=== PATIENT | female | born 2000 | race Caucasian/White ===

== ENCOUNTER 2019-07-06 08:20 | Emergency (ER) | payer OTHER, SELFPAY ==
[2019-07-06 08:27] VITALS: BP 126/64; PULSE 100; RESP 14; TEMP 38.6; O2SAT 98
--- NOTE | 2019-07-06 08:45 | ED.URI ---
HPI - URI/Sore Throat General Chief Complaint: Upper Respiratory Infection Stated Complaint: Upper Respiratory Time Seen by Provider: 07/06/19 08:35 Source: patient Mode of arrival: ambulatory Limitations: no limitations History of Present Illness HPI Narrative: Leeann King is a 19 yo female with a PMH of depression who comes to [facility] with fever and sore throat x3 days, she states is been worsening Related Data Home Medications Medication Instructions Recorded Confirmed ferrous sulfate 325 mg PO DAILY 07/06/19 07/06/19 sertraline 25 mg PO DAILY 07/06/19 07/06/19 Allergies Allergy/AdvReac Type Severity Reaction Status Date / Time Sulfa (Sulfonamide Allergy Rash Verified 07/06/19 08:35 Antibiotics) Review of Systems Review of Systems: Narrative: CONSTITUTIONAL: Denies fever, chills, sweats. EYES: Denies visual changes, redness, discharge. ENT: Denies rhinorrhea, has congestion, has sore throat, no otalgia. CARDIOVASCULAR: Denies chest pain, palpitations, edema. RESPIRATORY: Denies dyspnea, wheezing, mild cough GASTROINTESTINAL: Denies abdominal pain, nausea, vomiting, diarrhea. GENITOURINARY: Denies dysuria, hematuria, abnormal discharge SKIN: Denies rash or itching. MUSCULOSKELETAL: Denies acute back pain, joint pain, or myalgia. NEUROLOGIC: Denies numbness, or focal weakness. PSYCHIATRIC: Denies anxiety or depression. [facility] Family History Family History (Updated 07/06/19 @ 08:48 by Lillie Maldonado CNP) Other Hypertension Social History Social History Smoking status: Never smoker Comments At time of signature, I agree with nursing past medical, surgical, social and family history. There is no relevant family history pertinent to the presenting complaint. Exam Narrative: Exam Narrative: GENERAL: This is a well-nourished, well-developed patient, in mild distress. HEAD: normocephalic, atraumatic. EYES: PERRL. Sclera clear/white. Vision is grossly intact. EARS: External ears normal, auditory canals clear and without drainage, TMs normal without perforation. Hearing grossly intact. NOSE: External nose normal with no obvious nasal discharge, nares without redness, no rhinorrhea. THROAT: Mucous membranes moist, posterior pharynx erythema with exudate. Submandibular lymph node tenderness NECK: Neck supple, CARDIOVASCULAR: Tachycardic rate and rhythm without murmurs, gallops, or rubs. RESPIRATORY: Clear to auscultation. Breath sounds equal bilaterally. No wheezes, rales, or rhonchi. GASTROINTESTINAL: Abdomen soft, non-tender, SKIN: warm, intact with no suspicious lesions or rash, good texture and turgor. NEURO: awake, alert, and oriented to person, place and time. There were no obvious focal neurologic abnormalities. Steady gait EXTREMITIES: Normal range of motion. No edema. BACK: Nontender without deformity . Course Course Emergency Course: Strep test-positive Vital Signs Vital signs: Vital Signs Temperature 101.4 F H 07/06/19 08:27 Pulse Rate 100 07/06/19 08:27 Respiratory Rate 14 07/06/19 08:27 Blood Pressure 126/64 07/06/19 08:27 Pulse Oximetry 98 07/06/19 08:27 Temperature 101.4 F H 07/06/19 08:27 Pulse Rate 100 07/06/19 08:27 Respiratory Rate 14 07/06/19 08:27 Blood Pressure 126/64 07/06/19 08:27 Pulse Oximetry 98 07/06/19 08:27 MDM - URI/Sore Throat Differential Diagnosis Differential diagnosis: Likely upper respiratory infection, viral infection and pharyngitis Lab Data Labs: Strep Screen Positive Group A Strep *(Reference Range: Negative)* Discharge Plan Discharge Clinical Impression: Pharyngitis Qualifiers: Pharyngitis/tonsillitis etiology: streptococcus Qualified Code(s): J02.0 - Streptococcal pharyngitis Patient Disposition: Home, Self-Care Condition: Stable Instructions: Antibiotic Form, Strep Throat (DC) Prescriptions: New
== END 2019-07-06 09:03 | disposition home or self-care (01) ==
PROVIDERS: Emergency Provider Nurse Practitioner
DX: J02.0 Streptococcal pharyngitis (principal); F32.9 Major depressive disorder, single episode, unspecified
CPT/HCPCS: 87880; 99213; G0463

== ENCOUNTER 2019-12-14 10:29 | Emergency (ER) | payer OTHER, SELFPAY ==
[2019-12-14 10:37] VITALS: BP 138/88; PULSE 118; RESP 20; TEMP 37.5; O2SAT 99
--- NOTE | 2019-12-14 11:06 | ED.EAR ---
HPI - Ear Problem General Chief complaint: Ear Stated complaint: ear pain/sore throat Time Seen by Provider: 12/14/19 11:06 Source: patient and RN notes reviewed History of Present Illness HPI Narrative: Patient is a 19-year-old female who presents the urgent care with complaints of bilateral ear pressure/pain, sinus drainage and sinus pressure. Patient states that started and she has taken 1 dose of Sudafed since then. Patient denies any fever, nausea, vomiting. No other acute complaints. No acute distress noted. Patient read the plan of care. Related Data Home Medications Medication Instructions Recorded Confirmed ferrous sulfate 325 mg PO DAILY 07/06/19 12/14/19 sertraline 25 mg PO DAILY 07/06/19 12/14/19 Allergies Allergy/AdvReac Type Severity Reaction Status Date / Time Sulfa (Sulfonamide Allergy Rash Verified 07/06/19 08:35 Antibiotics) Review of Systems Review of Systems: Narrative: CONSTITUTIONAL: Denies fever, chills, or sweats. EYES: Denies visual changes, redness, or discharge. ENT: Reports of bilateral otalgia, postnasal drainage, sinus pressure and sore throat CARDIOVASCULAR: Denies chest pain, palpitations, or edema. RESPIRATORY: Denies cough or dyspnea. GASTROINTESTINAL: Denies abdominal pain, nausea, vomiting, or diarrhea. GENITOURINARY: Denies dysuria or hematuria. SKIN: Denies rash or itching. MUSCULOSKELETAL: Denies back pain, joint pain, or myalgia. NEUROLOGIC: Denies headache, numbness, or weakness. All other systems reviewed are negative, except as documented in HPI. PMFSH Family History Family History (Updated 07/06/19 @ 08:48 by Lillie Maldonado CNP) Other Hypertension Social History Social History Smoking status: Never smoker Comments At the time of my signature, I reviewed and agree with the nursing past medical, surgical, social, and family history. There is no relevant family history pertinent to the patient complaint. Exam Narrative: Exam Narrative: GENERAL: This is a well-nourished, well-developed patient, in no apparent distress. HEAD: normocephalic, atraumatic. EYES: PERRL. Sclera clear/white. Vision is grossly intact. EARS: External ears normal, auditory canals clear and without drainage, moderate erythema and mild injection noted to the left TM, right TMs normal without perforation. Hearing grossly intact. NOSE: External nose normal with no obvious nasal discharge, nares without redness, no rhinorrhea. THROAT: Mucous membranes moist, posterior pharynx clear. Mild postnasal drainage NECK: Neck supple RESPIRATORY: Clear to auscultation. Breath sounds equal bilaterally. No wheezes, rales, or rhonchi. SKIN: warm, intact with no suspicious lesions or rash, good texture and turgor. NEURO: awake, alert, and oriented to person, place and time. There were no obvious focal neurologic abnormalities. EXTREMITIES: No clubbing, cyanosis, or edema. Course Vital Signs Vital signs: Vital Signs Temperature 99.5 F 12/14/19 10:37 Pulse Rate 118 H 12/14/19 10:37 Respiratory Rate 12/14/19 10:37 Blood Pressure 138/88 12/14/19 10:37 Pulse Oximetry 99 12/14/19 10:37 Temperature 99.5 F 12/14/19 10:37 Pulse Rate 118 H 12/14/19 10:37 Respiratory Rate 12/14/19 10:37 Blood Pressure 138/88 12/14/19 10:37 Pulse Oximetry 99 12/14/19 10:37 Reviewed Medical Decision Making MDM Narrative Medical decision making narrative: Advised the patient to complete oral antibiotic regimen as prescribed. Make sure to eat and drink with medication. Do not put anything in the ear such as water, peroxide, Q-tips. May use warm compress to the outside of the ear as needed for comfort. Use Tylenol/ibuprofen as needed for pain. Use [id number] antihistamine and Flonase nasal spray for ear pressure and postnasal drainage. Follow-up with PCP within 2 to 5 days or for worsening symptoms or failure to
== END 2019-12-14 11:06 | disposition home or self-care (01) ==
PROVIDERS: Emergency Provider Nurse Practitioner Family
DX: H66.92 Otitis media, unspecified, left ear (principal)
CPT/HCPCS: 99213; G0463

== ENCOUNTER 2021-01-10 14:10 | Emergency (ER) | payer OTHER, SELFPAY ==
--- NOTE | 2021-01-10 14:13 | ED.UPPEXIN ---
HPI - Extremity Injury (Upper) General Chief Complaint: Upper Respiratory Infection Stated Complaint: Sore Throat, runny Nose, pressure in both Ears Time Seen by Provider: 01/10/21 14:14 Source: patient and RN notes reviewed Related Data Home Medications Medication Instructions Recorded Confirmed ferrous sulfate 325 mg PO DAILY 07/06/19 12/14/19 sertraline 25 mg PO DAILY 07/06/19 12/14/19 Allergies Allergy/AdvReac Type Severity Reaction Status Date / Time Sulfa (Sulfonamide Allergy Rash Verified 07/06/19 08:35 Antibiotics) PMFSH Family History Family History (Updated 07/06/19 @ 08:48 by Lillie Maldonado CNP) Other Hypertension Social History Social History Smoking status: Never smoker Discharge Plan Discharge Prescriptions: No Action ferrous sulfate 325 mg (65 mg iron) Tablet 325 mg PO DAILY RF: 0 sertraline 25 mg Tablet 25 mg PO DAILY RF: 0 amoxicillin 875 mg tablet 875 mg PO Q12H Qty: 20 RF: 0
--- NOTE | 2021-01-10 14:20 | ED.URI ---
HPI - URI/Sore Throat General Chief Complaint: Upper Respiratory Infection Stated Complaint: Sore Throat, runny Nose, pressure in both Ears Time Seen by Provider: 01/10/21 14:14 Source: patient and RN notes reviewed History of Present Illness HPI Narrative: Patient is a 20-year-old female who presents the urgent care with complaints of sore throat, runny nose, bilateral ear pressure and sinus congestion. Denies fever, chills, nausea, vomiting, cough or shortness of breath. Patient states her symptoms started yesterday and she has been taking Sudafed and Tylenol for her symptoms. Denies of any fever or known contact with strep or Covid. Patient has not been vaccinated for Covid. No other acute complaints. No acute distress noted. Patient aware of the plan of care. Some parts of this dictation were generated by voice recognition software and may contain typographical and/or grammatical inaccuracies. Related Data Home Medications Medication Instructions Recorded Confirmed ferrous sulfate 325 mg PO DAILY 07/06/19 01/10/21 sertraline 25 mg PO DAILY 07/06/19 01/10/21 Allergies Allergy/AdvReac Type Severity Reaction Status Date / Time Sulfa (Sulfonamide Allergy Rash Verified 07/06/19 08:35 Antibiotics) Review of Systems Review of Systems: CONSTITUTIONAL: Denies fever, chills, or sweats. EYES: Denies visual changes, redness, or discharge. ENT: Reports of sinus congestion, postnasal drainage, sore throat and bilateral ear pressure with runny nose CARDIOVASCULAR: Denies chest pain, palpitations, or edema. RESPIRATORY: Denies cough or dyspnea. GASTROINTESTINAL: Denies abdominal pain, nausea, vomiting, or diarrhea. GENITOURINARY: Denies dysuria or hematuria. SKIN: Denies rash or itching. MUSCULOSKELETAL: Denies back pain, joint pain, or myalgia. NEUROLOGIC: Denies headache, numbness, or weakness. All other systems reviewed are negative, except as documented in HPI. [facility] Family History Family History (Updated 07/06/19 @ 08:48 by Lillie Maldonado CNP) Other Hypertension Social History Social History Smoking status: Never smoker Gender identity (if verbalized by the patient): Female Comments At the time of my signature, I reviewed and agree with the nursing past medical, surgical, social, and family history. There is no relevant family history pertinent to the patient complaint. Exam Narrative: GENERAL: This is a well-nourished, well-developed patient, in no apparent distress. HEAD: normocephalic, atraumatic. Frontal sinus tenderness EYES: PERRL. Sclera clear/white. Vision is grossly intact. EARS: External ears normal, auditory canals clear and without drainage, moderate fluid noted behind left TM without otitis, TMs normal without perforation. Hearing grossly intact. NOSE: External nose normal with no obvious nasal discharge, nares without redness, clear rhinorrhea. THROAT: Mucous membranes moist, posterior pharynx clear. Moderate postnasal drainage NECK: Neck supple, non-tender without lymphadenopathy CARDIOVASCULAR: Regular rate and rhythm without murmurs, gallops, or rubs. RESPIRATORY: Clear to auscultation. Breath sounds equal bilaterally. No wheezes, rales, or rhonchi. SKIN: warm, intact with no suspicious lesions or rash, good texture and turgor. NEURO: awake, alert, and oriented to person, place and time. There were no obvious focal neurologic abnormalities. EXTREMITIES: No clubbing, cyanosis, or edema. Course Vital Signs Vital signs: Vital Signs Temperature 99.1 F 01/10/21 14:24 Pulse Rate 90 01/10/21 14:24 Respiratory Rate 18 01/10/21 14:24 Blood Pressure 130/71 01/10/21 14:24 Pulse Oximetry 99 01/10/21 14:24 Temperature 99.1 F 01/10/21 14:24 Pulse Rate 90 01/10/21 14:24 Respiratory Rate 18 01/10/21 14:24 Blood Pressure 130/71 01/10/21 14:24 Pulse Oximetry 99 01/10/21 14:24 Reviewed MDM - URI/Sore
[2021-01-10 14:24] VITALS: BP 130/71; PULSE 90; RESP 18; TEMP 37.3; O2SAT 99
== END 2021-01-10 14:41 | disposition home or self-care (01) ==
PROVIDERS: Emergency Provider Nurse Practitioner Family
DX: J02.9 Acute pharyngitis, unspecified (principal); J32.9 Chronic sinusitis, unspecified
CPT/HCPCS: 87081; 87880; 99213; G0463

== ENCOUNTER 2023-06-27 09:34 | Emergency (ER) | payer BC, MEDICAID, SELFPAY ==
[2023-06-27 09:43] VITALS: BP 144/77; PULSE 104; RESP 20; TEMP 36.8; O2SAT 100
--- NOTE | 2023-06-27 09:49 | ED.URI ---
HPI - URI/Sore Throat General Chief Complaint: Upper Respiratory Infection Stated Complaint: Cough Time Seen by Provider: 06/27/23 09:49 Source: patient, RN notes reviewed and old records reviewed Mode of arrival: ambulatory Limitations: no limitations History of Present Illness HPI Narrative: 23 year old female who presents to [facility] care with complaints of cough with some wheezing with sinus congestion and drainage for the past 10 days.Patient reports that she felt warm last night and had some chills and sweats but didn't have a thermometer to check temperature. Patient has been taking Claritin, Mucinex DM, and Tylenol for her symptoms. Patient reports that she has had headaches but denies any body aches MD elicited complaint: cough, rhinorrhea, nasal congestion and other (chills and sweats) Onset (ago): day(s) (10) Severity: moderate Able to tolerate fluids by mouth: Yes Treatments prior to arrival: acetaminophen and other (Claritin,Muciinex DM) Related Data Home Medications Medication Instructions Recorded Confirmed ferrous sulfate 325 mg (65 mg 325 mg PO DAILY 07/06/19 06/27/23 iron) tablet ergocalciferol (vitamin D2) 1,250 1,250 mcg PO WEEKLY 06/27/23 06/27/23 mcg (50,000 unit) capsule levothyroxine 75 mcg tablet 75 mcg PO DAILY 06/27/23 06/27/23 sertraline 25 mg tablet 25 mg PO DAILY 06/27/23 06/27/23 Allergies Allergy/AdvReac Type Severity Reaction Status Date / Time Sulfa (Sulfonamide Allergy Rash Verified 06/27/23 09:47 Antibiotics) Review of Systems Review of Systems: CONSTITUTIONAL: Denies malaise, reports episode of chills, sweats, felt fever. EYES: Denies visual changes, redness, or discharge. ENT: Reports rhinorrhea, congestion, sinus pain, no otalgia and no sore throat. CARDIOVASCULAR: Denies chest pain, palpitations, or edema. RESPIRATORY: Reports cough.? Denies dyspnea. GASTROINTESTINAL: Denies abdominal pain, nausea, vomiting, diarrhea SKIN: Denies rash or itching. MUSCULOSKELETAL: Denies myalgia. NEUROLOGIC: Reports headache. All systems reviewed & are unremarkable except as noted in HPI and below PMFSH Past Medical History Medical History (Updated 06/29/23 @ 19:27 by Tammy Elam NP) Hypothyroidism Sinusitis Surgical History Surgical History (Updated 06/27/23 @ 10:10 by Tammy Elam NP) History of tonsillectomy Family History Family History Other Hypertension Social History Social History (Updated 06/27/23 @ 10:11 by Tammy Elam NP) Smoking status: Never smoker Alcohol intake: never Substance use: never Living arrangements: with family Gender identity (if verbalized by the patient): Female Comments At time of signature, agree with nursing past medical, surgical, social and family history. There is no relevant family history pertinent to the presenting complaint Exam Narrative: GENERAL: Well-appearing, well-nourished, obese and in no acute distress. HEAD: Normocephalic EYES: PERRLA, conjunctivae clear ENT: Nares clear, turbinates edematous and erythematous, clear discharge. Mucous membranes moist. TM pearly sainz with dull light reflex bilaterally; no tragal tenderness. Oropharynx erythematous without lesions. Tonsils not present and without exudate, no drooling, no hoarseness, no trismus, uvula midline.post nasal drainage NECK: Supple. No lymphadenopathy CHEST: Clear to auscultation, breath sounds equal. No wheezing, rhonchi, rales, or stridor. No respiratory distress, speaks in full sentences.cough,SAO2 100% on room air HEART: Regular rate and rhythm. No murmur heard. SKIN: Warm, dry, no rash. NEURO: Alert and oriented x3. PSYCH: Normal mood and affect Course Course Emergency Course: Patient is aware of diagnosis, understands and agrees to treatment plan.? Anticipatory guidance given.? Patient agrees to follow-up as directed and is
== END 2023-06-27 10:08 | disposition home or self-care (01) ==
PROVIDERS: Emergency Provider Registered Nurse
DX: J32.9 Chronic sinusitis, unspecified (principal); E03.9 Hypothyroidism, unspecified; Z79.899 Other long term (current) drug therapy
CPT/HCPCS: 99213; G0463

== ENCOUNTER 2024-01-02 17:26 | Emergency (ER) | payer BC, MEDICAID, SELFPAY ==
[2024-01-02 17:35] VITALS: BP 155/89; PULSE 109; RESP 18; TEMP 36.5; O2SAT 100
--- NOTE | 2024-01-02 17:46 | ED.EAR ---
HPI - Ear Problem General Chief complaint: Ear Stated complaint: ear pain Source: patient Mode of arrival: ambulatory Limitations: no limitations History of Present Illness HPI Narrative: 23-year-old female presented for complaint of sinus congestion and pressure, x 2 weeks. Also reports right ear pain, onset yesterday. She denies Ear drainage, tinnitus, dizziness, nausea vomiting, diarrhea, fevers or chills. Taking Claritin, ibuprofen and Tylenol. MD Complaint: ear pain Related Data Home Medications Medication Instructions Recorded Confirmed ferrous sulfate 325 mg (65 mg 325 mg PO DAILY 07/06/19 01/02/24 iron) tablet levothyroxine 75 mcg tablet 75 mcg PO DAILY 06/27/23 01/02/24 sertraline 25 mg tablet 25 mg PO DAILY 06/27/23 01/02/24 Allergies Allergy/AdvReac Type Severity Reaction Status Date / Time Sulfa (Sulfonamide Allergy Rash Verified 06/27/23 09:47 Antibiotics) Review of Systems Review of Systems: CONSTITUTIONAL: Denies malaise, chills, or fever. EYES: Denies visual changes, redness, or discharge. ENT: Denies sinus pain, and sore throat. Reports ear pain, rhinorrhea, congestion CARDIOVASCULAR: Denies chest pain, palpitations, or edema. RESPIRATORY: Denies cough or dyspnea. GASTROINTESTINAL: Denies abdominal pain, nausea, vomiting, diarrhea SKIN: Denies rash or itching. MUSCULOSKELETAL: Denies myalgia. NEUROLOGIC: Denies headache. All systems reviewed & are unremarkable except as noted in HPI and below PMFSH Past Medical History Medical History Hypothyroidism Sinusitis Surgical History Surgical History History of tonsillectomy Family History Family History Other Hypertension Social History Social History Smoking status: Never smoker Alcohol intake: never Substance use: never Living arrangements: with family Gender identity (if verbalized by the patient): Female Comments At time of signature, agree with nursing past medical, surgical, social and family history. There is no relevant family history pertinent to the presenting complaint Exam Narrative: GENERAL: Well-appearing EYES: PERRLA, conjunctivae clear ENT: Nares clear. Mucous membranes moist. Right TM pearly sainz with dull light reflex and clear effusion bilaterally; left TM erythematous, bulging and intact; canal not erythematous, no drainage no tragal tenderness. Oropharynx not erythematous without lesions. Tonsils not enlarged and without exudate, no drooling, no hoarseness, no trismus, uvula midline. NECK: Supple. No lymphadenopathy CHEST: Clear to auscultation, breath sounds equal. HEART: Regular rate and rhythm. SKIN: Warm, dry, no rash. NEURO: Alert and oriented x3. PSYCH: Normal mood and affect Course Course Emergency Course: Patient is aware of diagnosis, understands and agrees to treatment plan. Anticipatory guidance given. Patient agrees to follow-up as directed and is aware of reasons to seek care at the emergency department. Portions of this record may have been created with voice recognition software Level of Care: Express Care Visit Vital Signs Vital signs: Vital Signs Temperature 97.7 F 01/02/24 17:35 Pulse Rate 109 H 01/02/24 17:35 Respiratory Rate 18 01/02/24 17:35 Blood Pressure 155/89 H 01/02/24 17:35 Pulse Oximetry 100 01/02/24 17:35 Oxygen Delivery Room Air 01/02/24 17:35 Temperature 97.7 F 01/02/24 17:35 Pulse Rate 109 H 01/02/24 17:35 Respiratory Rate 18 01/02/24 17:35 Blood Pressure 155/89 H 01/02/24 17:35 Pulse Oximetry 100 01/02/24 17:35 Oxygen Delivery Room Air 01/02/24 17:35 Reviewed Medical Decision Making MDM Narrative Medical decision making narrative: discussed physical exam findings cons
== END 2024-01-02 17:57 | disposition home or self-care (01) ==
PROVIDERS: Emergency Provider Nurse Practitioner Family
DX: J32.9 Chronic sinusitis, unspecified (principal); E03.9 Hypothyroidism, unspecified
CPT/HCPCS: 99213; G0463

== ENCOUNTER 2025-01-20 15:43 | Emergency (ER) | payer BC, SELFPAY ==
[2025-01-20 15:56] VITALS: BP 137/71; PULSE 94; RESP 16; TEMP 36.7; O2SAT 100
--- NOTE | 2025-01-20 16:02 | ED_ITS ---
HPI - URI/Sore Throat General Chief Complaint: Upper Respiratory Infection Stated Complaint: sinus issues History of Present Illness HPI Narrative: patient is a 24-year-old female, past medical history significant for anxiety and hypothyroidism, presents to [facility] with 1 week history of URI symptoms, progressively worsening over the past 2 days, with nasal congestion, purulent/ blood-streaked nasal discharge and a dry cough. She has a sensation of postnasal drip. She thought she might have been feverish last night but did not check her temp to confirm. She is taking Tylenol and Claritin with minimal relief. She denies chest pain shortness of breath, she has no nausea vomiting diarrhea. She does report that she has had some ear pressure. She has no additional associated symptoms she denies any additional modifying factors. She is not . Related Data Home Medications ?Medication ?Instructions ?Recorded ?Confirmed ?Last Taken ?Type ferrous sulfate 325 mg (65 mg 325 mg PO DAILY 07/06/19 01/02/24 Unknown History iron) tablet levothyroxine 75 mcg tablet 75 mcg PO DAILY 06/27/23 0 01/02/24 Unknown History Allergies Allergy/AdvReac Type Severity Reaction Status Date / Time Sulfa (Sulfonamide Allergy Rash Verified 01/20/25 16:00 Antibiotics) Review of Systems ENT: Reports as per HPI Respiratory: Respiratory: Reports as per HPI [facility] Past Medical History Medical History Hypothyroidism Sinusitis Surgical History Surgical History History of tonsillectomy Family History Family History Other Hypertension Social History Social History Smoking status: Never smoker Alcohol intake: never Substance use: never Living arrangements: with family Gender identity (if verbalized by the patient): Female Exam Const: General: healthy appearing Nutritional Appearance: well nourished and obese morbidly obese Orientation/consciousness: patient oriented x3 Limitations: no limitations HENMT: Head: normal to inspection Ears: external ears normal and TM abnormal other ( Right TM is retracted with an opaque effusion. Left TM is retracted translucent, no erythema noted, no perforation) Face/Nose/Sinus: Normal external nose present and Nasal discharge present purulent bilateral Face and sinus: normal facial exam and sinus tenderness maxillary Mouth: Yes Normal oral and palatal mucosa present, Yes lip normal and Yes moist mucous membranes Teeth and gingiva: dentition normal Throat: posterior oropharynx normal and uvula midline Eyes: Conjunctivae: conjunctivae normal Pupils: Equal, round and reactive pupils present EOM: EOMs intact bilaterally Direct Ophthalmoscopy: no photophobia Neck: Neck: normal visual inspection, no lymphadenopathy and no meningeal signs Resp: Effort & Inspection: normal respiratory effort Auscultation: clear to auscultation bilaterally Cardio: Rate: regular rate Rhythm: regular rhythm Skin: General skin exam: normal color Rashes: no rashes Wounds: no wounds Neuro: General: patient oriented x3 Cranial nerves: Yes Nystagmus not present Speech: normal speech Gait exam (Neuro): Normal gait present Extrem: General: normal to inspection Psych: Mental Status: mental status grossly normal Affect: normal affect Attitude: cooperative Course Course Emergency Course: patient's symptoms and examination are concerning for acute bacterial rhinosinusitis. Will treat with Augmentin, short steroid course and PCP follow- up in 3 days if symptoms not improving. She may continue Claritin and Tylenol as directed [id number]. Patient is agreeable plan Level of Care: [facility] Visit ([id number]) Vital Signs Vital signs: Vital Signs Temperature 36.7 C 01/20/25 15:56 Pulse Rate 94 01/20/25 15:56 Respiratory Rate 16 01/20/25 15:56 Blood Pressure 137/71 01/20/25 15:56 Pulse Oximetry 100 01/20/25 15:56 Oxygen Delivery Room Air 01/20/25 15:56 Temperature 36.7 C 01/20/25 15:56 Pulse Rate 94 01/20/25 15:56 Respiratory Rate 16 01/20/25 15:56 Blood Pressure 137/71 01/20/25 15:56 Pulse Oximetry 100 01/20/25 15:56 Oxygen Delivery Room Air 01/20/25 15:56 MDM - URI/Sore Throat MDM Narrative Medical decision making narrative: Augmentin b.i.d. for 10 days, prednisone daily for 5 days, [id number] Zyrtec or Claritin may be continued Differential Diagnosis Differential diagnosis: Likely upper respiratory infection, otitis media, sinusitis, viral infection, bronchitis and pharyngitis Discharge Plan Discharge Clinical Impression: Acute right otitis media Sinusitis Qualifiers: Sinusitis location: maxillary Chronicity: acute Recurrence: non-recurrent Qualified Code(s): J01.00 - Acute maxillary sinusitis, unspecified Patient Disposition: Home Condition: Stable Instructions: Antibiotic Form, Sinusitis (ED), Ear Infection (ED) Additional Instructions: START AND COMPLETE ORAL ANTIBIOTICS AND ORAL STEROIDS PRESCRIBED. YOU MAY CONTINUE [id number] CLARITIN AND TYLENOL DIRECTED. PUSH FLUIDS AND REST. FOLLOW-UP WITH YOUR PRIMARY DOCTOR IN 3-5 DAYS IF SYMPTOMS ARE NOT IMPROVING. Patient Language: Japanese Prescriptions: New amoxicillin-pot clavulanate 875-125 mg tablet 1 tablet PO Q12H Qty: 20 0RF prednisone 20 mg tablet 40 mg PO DAILY 5 Days Qty: 10 0RF No Action ferrous sulfate 325 mg (65 mg iron) Tablet 325 mg PO DAILY levothyroxine 75 mcg tablet 75 mcg PO DAILY Follow-up/Referrals: PHYSICIAN,BOOT TURNER [Primary Care Provider, Internal Medicine] Time of Disposition: 16:15
--- OUTSIDE RECORDS SUMMARY | 2025-01-20 16:02 | XMS_ITS | Clinical Summary ---
Author Organization [facility] Address [address] [place] [address] Care Team Providers Care Coach Professional [employer] Name Role Phone No, Physician Primary Care Provider [phone] Allergies Active Allergy Reactions Criticality Noted Date Comments Sulfa (Sulfonamide Antibiotics) Medications meclizine (ANTIVERT) 25 mg tablet Take 1 tablet (25 mg total) by mouth 3 (three) times a day as needed for dizziness 15 tablet 9 Active cetirizine (ZyrTEC) 10 mg tablet Take 1 tablet (10 mg total) by mouth daily 30 tablet 4 Active hydrOXYzine (ATARAX) 25 mg tablet Take 1 tablet (25 mg total) by mouth every 6 (six) hours 21 tablet 4 Active famotidine (PEPCID) 20 mg tablet Take 1 tablet (20 mg total) by mouth 2 (two) times a day for 15 days 30 tablet 4 Active Medical History Medical History Date Comments Iron deficiency anemia Vitamin D deficiency Thyroid condition Social History Tobacco Use Types Packs/Day Years Used Date Smoking Tobacco: Never Assessed Personal Safety Answer Date Recorded Have you ever been in or are you currently in a harmful physical or emotional relationship or is someone making you feel afraid or unsafe? Denies 09/13/2023 Comments No Sex and Gender Information Value Date Recorded Sex Assigned at Not on file Legal Sex Female 4:49 PM [employer] Gender Identity Not on file Sexual Orientation Not on file Obstetrics History Last Filed Vital Signs Vital Sign Reading Time Taken Comments Blood Pressure 153/97 09/13/2023 9:03 PM CDT Pulse 109 09/13/2023 9:03 PM CDT Temperature 36.7 C (98.1 F) 09/13/2023 9:03 PM CDT Respiratory Rate 16 09/13/2023 9:03 PM CDT Oxygen Saturation 100% 09/13/2023 9:03 PM CDT Inhaled Oxygen Concentration - - Weight 145.2 kg (320 lb) 09/13/2023 9:03 PM CDT Height 167.6 cm (5' 6) 09/13/2023 9:03 PM CDT Body Mass Index 51.65 09/13/2023 9:03 PM CDT Plan of Treatment Health Maintenance Due Date Last Done Comments Cervical Cancer Screening 1998 Depression Screening 1998 Hepatitis C Screening 1998 Regular Well Visit/Exam 18-64 2016 DTaP/Tdap/Td Vaccine (7 - Td or Tdap) 03/17/2023 03/17/2013, 06/25/2002, 08/23/1999, Additional history exists Covid-19 Vaccine ( season) 2024 01/29/2021 Influenza Vaccine (#1) 2025 , 08/24/2020, 02/03/2019, Additional history exists Hepatitis B Screening Completed 1998 , 1998, 1998 Varicella Vaccines Completed 03/17/2013, 1999 HPV Vaccines Completed 06/11/2016, 02/01, 03/17/2013 Pneumococcal vaccine <65 Aged Out No longer eligible based on patient's age to [place] [address] [facility] OTHER [facility] Care Teams Coach Professional Athletes Relationship Specialty Start Date End Date No, Physician PCP - General 09/13/23
== END 2025-01-20 16:15 | disposition home or self-care (01) ==
PROVIDERS: Emergency Provider Nurse Practitioner Family
DX: H66.91 Otitis media, unspecified, right ear (principal); J01.00 Acute maxillary sinusitis, unspecified; E03.9 Hypothyroidism, unspecified
CPT/HCPCS: 99213; G0463